=== PATIENT | male | born 1935 | race Caucasian/White ===

== ENCOUNTER 2017-06-12 09:14 | Emergency (ER) | payer MEDICARE ==
[~2017-06-12] VITALS: Ht 180.3 cm; Wt 98.0 kg
[2017-06-12] MEDS ORDERED: SODIUM CHLORIDE 0.9% 1,000 ML IV ONE (09:24)
[2017-06-12] MEDS ORDERED: PLEASE ENTER ALLERGIES MC SCH ×2 (09:30)
[2017-06-12] MEDS ORDERED: SODIUM CHLORIDE 0.9% 1,000ML IVBOLUS ONE (09:30)
[2017-06-12] MEDS ORDERED: PLEASE ENTER HEIGHT AND WEIGHT MC SCH (09:30)
[2017-06-12 09:46] LABS: HEMATOCRIT 46.2 % (39.2-51.8); HEMOGLOBIN 15.9 g/dL (13.7-18.0)
[2017-06-12] MEDS ORDERED: ONDANSETRON 2MG/ML, 2ML IVPush ONE (10:00)
[2017-06-12] MEDS ORDERED: MORPHINE SULFATE 4 MG/ML, 1ML ONE ×2 (10:23→13:56)
[2017-06-12] MEDS ORDERED: ONDANSETRON 2MG/ML, 2ML ONE (10:23)
[2017-06-12] MEDS: MORPHINE SULFATE 4 MG/ML, 1ML IVPush PRN ×2 (10:43→14:05)
[2017-06-12 11:19] LABS: BLOOD UREA NITROGEN 17 mg/dL (7-18)
[2017-06-12 14:48] VITALS: BP 114/97
== END 2017-06-12 14:52 | disposition home or self-care (01) ==
LOC: ED 09:32
DX: N30.01 Acute cystitis with hematuria (principal); D72.829 Elevated white blood cell count, unspecified; E11.9 Type 2 diabetes mellitus without complications
CPT/HCPCS: 36415; 51702; 76770; 80048; 81001; 82040; 85025; 87077; 87086; 87186; 96361; 96374; 96375; 96376; 99285; J2405; J7030

== ENCOUNTER 2017-06-16 10:01 | Inpatient (IN) | payer MEDICARE ==
[~2017-06-16] VITALS: Ht 180.3 cm; Wt 100.7 kg
[2017-06-16] MEDS ORDERED: LISI40TA PO (10:50)
[2017-06-16] MEDS ORDERED: FURO20TA3 PO (10:50)
[2017-06-16] MEDS ORDERED: CLOP75TA PO (10:50)
[2017-06-16] MEDS ORDERED: POTA10CA PO (10:50)
[2017-06-16] MEDS ORDERED: SAXA5TAB PO (10:50)
[2017-06-16] MEDS ORDERED: APIX5TAB PO (10:50)
[2017-06-16] MEDS ORDERED: ATEN100T PO (10:50)
[2017-06-16] MEDS ORDERED: TRAM50TA2 PO (10:50)
[2017-06-16] MEDS ORDERED: GLIP5TAB10 PO (10:50)
[2017-06-16] MEDS ORDERED: METF500T4 PO (10:50)
[2017-06-16] MEDS ORDERED: LABETALOL 5MG/ML, 20ML ONE (10:53)
[2017-06-16 10:55] LABS: PATH.CAST-FLAG NOT PRESENT; SPERM-FLAG NOT PRESENT; SRC-FLAG NOT PRESENT; XTAL-FLAG NOT PRESENT; YLC-FLAG NOT PRESENT
[2017-06-16] MEDS ORDERED: SODIUM CHLORIDE 0.9% 1,000ML IVBOLUS ONE (11:00)
[2017-06-16] MEDS ORDERED: LABETALOL 5MG/ML, 20ML IVPush ONE (11:00)
[2017-06-16] MEDS ORDERED: SODIUM CHLORIDE FLUSH 10ML SYR IVF ONE (11:00)
[2017-06-16 11:11] LABS: HEMATOCRIT 45.8 % (39.2-51.8); HEMOGLOBIN 15.6 g/dL (13.7-18.0); WHITE BLOOD COUNT 9.8 x10^3/uL (3.4-10)
[2017-06-16 11:13] LABS: BLOOD UREA NITROGEN 15 mg/dL (7-18)
[2017-06-16] MEDS ORDERED: INSULIN REGULAR 100 UNITS/ML, 3ML VIAL IVPush ONE (11:30)
[2017-06-16] MEDS ORDERED: ERTAPENEM 1 GM in SODIUM CHLORIDE 0.9% 50 ML IV ONE (11:30)
[2017-06-16] MEDS ORDERED: INSULIN REGULAR 100 UNITS/ML, 3ML VIAL ONE ×2 (11:32→11:33)
[2017-06-16] MEDS: ERTAPENEM 1 GM in SODIUM CHLORIDE 0.9% 50 ML IV SCH (12:30)
[2017-06-16] MEDS ORDERED: ATENOLOL 100 MG TABLET PO SCH (13:00)
[2017-06-16] MEDS ORDERED: ACETAMINOPHEN 325 MG TABLET PO PRN (13:00)
[2017-06-16] MEDS ORDERED: TEMPLATE NON-FORMULARY MED. (Potassium Chloride** 10 MEQ) PO SCH (13:00)
[2017-06-16] MEDS ORDERED: ONDANSETRON 2MG/ML, 2ML IVPush PRN (13:00)
[2017-06-16] MEDS ORDERED: ONDANSETRON ODT 4 MG PO PRN (13:00)
[2017-06-16] MEDS ORDERED: LISINOPRIL 20 MG TABLET PO SCH (13:00)
[2017-06-16] MEDS ORDERED: FUROSEMIDE 20 MG TABLET PO SCH (13:00)
[2017-06-16 14:33] VITALS: BP 154/83
[2017-06-16] MEDS: SODIUM CHLORIDE 0.9% 1,000 ML IV SCH (15:27)
[2017-06-16 18:32] VITALS: BP 164/80
[2017-06-16] MEDS: INSULIN ASPART 100 UNITS/ML, PEN SQ-INSULIN SCH ×2 (19:10→21:20)
[2017-06-16] MEDS: APIXABAN 5 MG TABLET PO SCH (20:16)
[2017-06-17 01:41] VITALS: BP 189/85
[2017-06-17] MEDS: HYDROmorphone 1 MG/ML, 1ML IV PRN ×4 (02:07→20:28)
[2017-06-17] MEDS: SODIUM CHLORIDE 0.9% 1,000 ML IV SCH ×2 (02:07→15:21)
[2017-06-17] MEDS: hydrALAzine 20 MG/ML, 1ML IV PRN (03:32)
[2017-06-17 04:00] VITALS: BP 174/76
[2017-06-17 05:16] LABS: HEMATOCRIT 41.3 % (39.2-51.8); HEMOGLOBIN 14.1 g/dL (13.7-18.0); WHITE BLOOD COUNT 6.2 x10^3/uL (3.4-10)
[2017-06-17 05:25] LABS: BLOOD UREA NITROGEN 11 mg/dL (7-18)
[2017-06-17 05:29] LABS: ASPARTATE AMINO TRANSFERASE 16 U/L (15-37)
[2017-06-17 05:38] VITALS: BP 154/75
[2017-06-17 08:00] VITALS: BP 158/91
[2017-06-17] MEDS ORDERED: POTASSIUM CHLORIDE 20 MEQ TAB.ER.PRT PO ONE (08:30)
[2017-06-17] MEDS: INSULIN ASPART 100 UNITS/ML, PEN SQ-INSULIN SCH ×4 (08:41→20:47)
[2017-06-17] MEDS: APIXABAN 5 MG TABLET PO SCH ×2 (08:42→20:29)
[2017-06-17] MEDS: LISINOPRIL 20 MG TABLET PO SCH (08:42)
[2017-06-17] MEDS: ATENOLOL 100 MG TABLET PO SCH (08:42)
[2017-06-17] MEDS ORDERED: CLOPIDOGREL 75 MG TABLET PO SCH (09:00)
[2017-06-17] MEDS: ERTAPENEM 1 GM in SODIUM CHLORIDE 0.9% 50 ML IV SCH (12:13)
[2017-06-17 14:00] VITALS: BP 151/92
[2017-06-17 19:16] VITALS: BP_SYST 174; BP_SYST 181; BP_DIAS 101; BP_DIAS 102
[2017-06-17] MEDS: metFORMIN 500 MG TABLET PO SCH (20:28)
[2017-06-18] MEDS: HYDROmorphone 1 MG/ML, 1ML IV PRN ×6 (00:29→20:12)
[2017-06-18 03:36] VITALS: BP 177/99
[2017-06-18] MEDS: hydrALAzine 20 MG/ML, 1ML IV PRN (03:47)
[2017-06-18] MEDS: SODIUM CHLORIDE 0.9% 1,000 ML IV SCH ×2 (03:48→17:22)
[2017-06-18 03:59] VITALS: BP 162/83
[2017-06-18] MEDS: INSULIN ASPART 100 UNITS/ML, PEN SQ-INSULIN SCH ×4 (07:00→20:12)
[2017-06-18 07:21] VITALS: BP 132/74
[2017-06-18] MEDS ORDERED: GLUCAGON 1 MG IM PRN (08:30)
[2017-06-18] MEDS ORDERED: DEXTROSE 50%, 50ML SYRINGE IVPush PRN (08:30)
[2017-06-18] MEDS ORDERED: DEXTROSE 4 GM TAB.CHEW PO PRN (08:30)
[2017-06-18] MEDS: TEMPLATE NON-FORMULARY MED. (Saxagliptin Hcl** (Onglyza**) 5 MG) PO SCH (09:00)
[2017-06-18] MEDS: LISINOPRIL 20 MG TABLET PO SCH (09:00)
[2017-06-18] MEDS: SODIUM CHLORIDE FLUSH 10ML SYR IVF SCH ×2 (10:18→20:11)
[2017-06-18] MEDS: APIXABAN 5 MG TABLET PO SCH ×2 (10:19→20:10)
[2017-06-18] MEDS: metFORMIN 500 MG TABLET PO SCH ×2 (10:20→20:10)
[2017-06-18] MEDS: ATENOLOL 100 MG TABLET PO SCH (10:21)
[2017-06-18] MEDS: ERTAPENEM 1 GM in SODIUM CHLORIDE 0.9% 50 ML IV SCH (11:34)
[2017-06-18] MEDS: OXYcodone IR 5MG TABLET PO PRN ×3 (11:58→23:11)
[2017-06-18 14:19] VITALS: BP 137/71
[2017-06-18 19:07] VITALS: BP 164/96
[2017-06-19] MEDS: HYDROmorphone 1 MG/ML, 1ML IV PRN ×6 (00:26→20:54)
[2017-06-19 01:36] VITALS: BP 135/99
[2017-06-19] MEDS: OXYcodone IR 5MG TABLET PO PRN ×2 (03:52→18:03)
[2017-06-19 05:39] LABS: HEMATOCRIT 39.9 % (39.2-51.8); HEMOGLOBIN 13.4 g/dL (13.7-18.0); WHITE BLOOD COUNT 7.2 x10^3/uL (3.4-10)
[2017-06-19 05:56] LABS: BLOOD UREA NITROGEN 13 mg/dL (7-18)
[2017-06-19] MEDS: SODIUM CHLORIDE 0.9% 1,000 ML IV SCH ×2 (07:21→20:52)
[2017-06-19 07:41] VITALS: BP 192/96
[2017-06-19] MEDS: APIXABAN 5 MG TABLET PO SCH ×2 (09:00→20:53)
[2017-06-19] MEDS: ATENOLOL 100 MG TABLET PO SCH (09:00)
[2017-06-19] MEDS: TEMPLATE NON-FORMULARY MED. (Saxagliptin Hcl** (Onglyza**) 5 MG) PO SCH (09:00)
[2017-06-19] MEDS: LISINOPRIL 20 MG TABLET PO SCH (09:00)
[2017-06-19] MEDS: metFORMIN 500 MG TABLET PO SCH ×2 (09:21→20:52)
[2017-06-19] MEDS: INSULIN ASPART 100 UNITS/ML, PEN SQ-INSULIN SCH (09:21)
[2017-06-19] MEDS: SODIUM CHLORIDE FLUSH 10ML SYR IVF SCH ×2 (09:21→20:37)
[2017-06-19] MEDS ORDERED: LABETALOL 5MG/ML, 20ML IVPush PRN (10:30)
[2017-06-19] MEDS: ERTAPENEM 1 GM in SODIUM CHLORIDE 0.9% 50 ML IV SCH (12:29)
[2017-06-19] MEDS: INSULIN REGULAR 100 UNITS/ML, 3ML VIAL SQ-INSULIN SCH ×3 (12:30→21:08)
[2017-06-19] MEDS ORDERED: INSULIN DETEMIR 100 UNITS/ML, PEN SQ-INSULIN SCH (17:00)
[2017-06-19 18:48] VITALS: BP 164/98
[2017-06-20] MEDS: OXYcodone IR 5MG TABLET PO PRN ×2 (00:16→04:42)
[2017-06-20] MEDS: HYDROmorphone 1 MG/ML, 1ML IV PRN ×4 (01:07→12:40)
[2017-06-20 01:09] VITALS: BP 174/99
[2017-06-20 04:42] VITALS: BP 173/92
[2017-06-20] MEDS: hydrALAzine 20 MG/ML, 1ML IV PRN (05:11)
[2017-06-20 07:06] VITALS: BP 195/94
[2017-06-20] MEDS: APIXABAN 5 MG TABLET PO SCH (07:43)
[2017-06-20] MEDS: LISINOPRIL 20 MG TABLET PO SCH (07:44)
[2017-06-20] MEDS: metFORMIN 500 MG TABLET PO SCH (07:44)
[2017-06-20] MEDS: ATENOLOL 100 MG TABLET PO SCH (07:44)
[2017-06-20] MEDS: SODIUM CHLORIDE FLUSH 10ML SYR IVF SCH (07:45)
[2017-06-20] MEDS: TEMPLATE NON-FORMULARY MED. (Saxagliptin Hcl** (Onglyza**) 5 MG) PO SCH (07:49)
[2017-06-20] MEDS: SODIUM CHLORIDE 0.9% 1,000 ML IV SCH (08:40)
[2017-06-20] MEDS: INSULIN REGULAR 100 UNITS/ML, 3ML VIAL SQ-INSULIN SCH ×2 (08:41→11:00)
[2017-06-20] MEDS ORDERED: FOSFOMYCIN 3 GM PACKET PO ONE (09:30)
[2017-06-20 09:50] VITALS: BP 159/91
[2017-06-20] MEDS: ERTAPENEM 1 GM in SODIUM CHLORIDE 0.9% 50 ML IV SCH (10:31)
== END 2017-06-20 14:00 | disposition home or self-care (01) | DRG 292 ==
LOC: ED 10:49 → EDIP 11:46 → 4WST 14:27
PROVIDERS: ADMIT Hospitalist; ATTEND Hospitalist
DX: I11.0 Hypertensive heart disease with heart failure (principal); N39.0 Urinary tract infection, site not specified; D68.69 Other thrombophilia; E11.65 Type 2 diabetes mellitus with hyperglycemia; E11.51 Type 2 diabetes mellitus with diabetic peripheral angiopathy without gangrene; E86.0 Dehydration; E44.1 Mild protein-calorie malnutrition; I48.2 Chronic atrial fibrillation; E87.1 Hypo-osmolality and hyponatremia; M48.50XA Collapsed vertebra, not elsewhere classified, site unspecified, initial encounter for fracture; I50.32 Chronic diastolic (congestive) heart failure; B96.1 Klebsiella pneumoniae [K. pneumoniae] as the cause of diseases classified elsewhere; E78.5 Hyperlipidemia, unspecified; G89.29 Other chronic pain; F41.9 Anxiety disorder, unspecified; E87.6 Hypokalemia; G47.00 Insomnia, unspecified; M54.9 Dorsalgia, unspecified; Z16.12 Extended spectrum beta lactamase (ESBL) resistance; Z79.01 Long term (current) use of anticoagulants; Z79.84 Long term (current) use of oral hypoglycemic drugs; Z83.3 Family history of diabetes mellitus; Z82.49 Family history of ischemic heart disease and other diseases of the circulatory system; Z90.49 Acquired absence of other specified parts of digestive tract; Z68.31 Body mass index [BMI] 31.0-31.9, adult
CPT/HCPCS: 36415; 80048; 80053; 81001; 82040; 82962; 84443; 85025; 85610; 87040; 87077; 87086; 87186; 93005; 96361; 96374; 96375; J1170; J1335; J1815; J0360; J7030

== ENCOUNTER → 2017-09-29 | Outpatient (CLI) | payer MEDICARE ==
[~2017-09-29] MED LIST: APIX5TAB PO; ATEN100T PO; CLOP75TA PO; FURO20TA3 PO; GLIP5TAB10 PO; LISI40TA PO; METF500T4 PO; OXYC5CAP2 PO; POTA10CA PO; SAXA5TAB PO; SULF-169 PO; TRAM50TA2 PO
[2017-09-29 15:06] LABS: BASOPHILS # (AUTO) 0.04 x10^3/uL (0-0.1); BASOPHILS % (AUTO) 1 % (0-1); EOSINOPHILS % (AUTO) 5 % (1-7); LYMPHOCYTES # (AUTO) 1.83 x10^3/uL (1-3.4); LYMPHOCYTES % (AUTO) 23 % (22-44); MD NO; MEAN CORPUSCULAR HEMOGLOBIN 31.1 pg (27.5-34.5); MEAN CORPUSCULAR HGB CONC 33.8 g/dL (33.2-36.2); MEAN CORPUSCULAR VOLUME 91.9 fL (81-97); MEAN PLATELET VOLUME 9.2 fL (7.4-10.4); MONOCYTES # (AUTO) 0.64 x10^3/uL (0.2-0.8); MONOCYTES % (AUTO) 8 % (2-9); NEUTROPHILS % (AUTO) 63 % (42-75); PLATELET COUNT 205 x10^3/uL (130-400); RED BLOOD COUNT 5.16 x10^6/uL (4.38-5.82); RED CELL DISTRIBUTION WIDTH 14.7 % (9.4-14.8)
[2017-09-29 15:13] LABS: MICROSCOPIC NOT IND
[2017-09-29 15:24] LABS: ALBUMIN 3.7 g/dL (3.4-5.0); ANION GAP 10 mmol/L (5-15); CALCIUM 9.7 mg/dL (8.5-10.1); CHLORIDE 96 mmol/L (98-107)
[2017-09-29 15:28] LABS: ALANINE AMINOTRANSFERASE 36 U/L (12-78); ALKALINE PHOSPHATASE 77 U/L (45-117); BILIRUBIN,TOTAL 1.3 mg/dL (0.2-1.0); CREATININE 1.27 mg/dL (0.7-1.3); TOTAL PROTEIN 7.9 g/dL (6.4-8.2)
[2017-09-29 15:59] LABS: CULTURE INDICATED? NO
== END | disposition home or self-care (01) ==
LOC: STAR 13:44
PROVIDERS: ATTEND Orthopaedic Surgery Orthopaedic Surgery of the Spine
DX: Z01.818 Encounter for other preprocedural examination (principal); R94.31 Abnormal electrocardiogram [ECG] [EKG]; M48.062 Spinal stenosis, lumbar region with neurogenic claudication; M51.36 Other intervertebral disc degeneration, lumbar region
CPT/HCPCS: 36415; 71046; 80053; 81003; 85025; 93005

== ENCOUNTER 2017-10-03 05:27 | Day surgery (SDC) | payer MEDICARE ==
[~2017-10-03] VITALS: Ht 180.3 cm; Wt 93.2 kg
[2017-10-03] MEDS ORDERED: LACTATED RINGERS 1,000 ML IV SCH (06:12)
[2017-10-03] MEDS ORDERED: BUPIVACAINE/PF 0.5% ONE (06:58)
[2017-10-03] MEDS ORDERED: EPINEPHRINE 1 MG/ML, 1ML ONE (06:59)
[2017-10-03] MEDS ORDERED: THROMBIN 5,000 UNIT VIAL TP ONE (06:59)
[2017-10-03] MEDS ORDERED: BACITRACIN 50,000 UNIT ONE (06:59)
[2017-10-03] MEDS ORDERED: KETAMINE 10 MG/ML, 20ML ONE (07:10)
[2017-10-03] MEDS ORDERED: FENTANYL PF 250 MCG/5ML ONE (07:10)
[2017-10-03] MEDS ORDERED: CLINDAMYCIN 150 MG/ML, 6ML ONE (07:31)
[2017-10-03] MEDS ORDERED: ROCURONIUM 10MG/ML,5ML ONE (07:32)
[2017-10-03] MEDS ORDERED: SUCCINYLCHOLINE 20 MG/ML, 10ML ONE (07:32)
[2017-10-03] MEDS ORDERED: PROPOFOL 10 MG/ML, 20ML ONE (07:32)
[2017-10-03] MEDS ORDERED: BUPIVACAINE/PF-EPI 0.5% 1:200K IM ONE (08:00)
[2017-10-03] MEDS ORDERED: TRANEXAMIC ACID 100 MG/ML, 10ML ONE (08:07)
[2017-10-03] MEDS ORDERED: LABETALOL 5MG/ML, 20ML IV PRN (08:30)
[2017-10-03] MEDS ORDERED: ALBUTEROL SULFATE 2.5 MG/3 ML NPPB PRN (08:30)
[2017-10-03] MEDS ORDERED: ACETAMINOPHEN 325 MG TABLET PO PRN (08:30)
[2017-10-03] MEDS ORDERED: PROMETHAZINE 25 MG/ML, 1ML IV PRN (08:30)
[2017-10-03] MEDS ORDERED: DIAZEPAM 5 MG/ML, 2ML IVPush PRN (08:30)
[2017-10-03] MEDS ORDERED: morphine SULFATE 10 MG/ML, 1ML IV PRN (08:30)
[2017-10-03] MEDS ORDERED: VANCOMYCIN 500 MG ONE (08:38)
[2017-10-03] MEDS ORDERED: BUPIVACAINE LIPOSOME/PF INFIL ONE ×2 (08:52→09:00)
[2017-10-03] MEDS ORDERED: ACETAMINOPHEN 650 MG/20.3 ML UDC ONE (09:38)
[2017-10-03] MEDS ORDERED: FENTANYL PF 100 MCG/2ML ONE (09:38)
[2017-10-03] MEDS ORDERED: OXYcodone 5 MG/5 ML ORAL.SOL UDC ONE ×2 (09:39→10:29)
[2017-10-03] MEDS: OXYcodone 5 MG/5 ML ORAL.SOL UDC PO PRN ×2 (09:46→10:20)
[2017-10-03] MEDS: FENTANYL PF 100 MCG/2ML IV PRN ×2 (09:47→10:12)
[2017-10-03] MEDS ORDERED: LABETALOL 5MG/ML, 20ML ONE (09:50)
[2017-10-03] MEDS ORDERED: HYDROmorphone 2 MG/ML, 1ML IM PRN (12:00)
[2017-10-03] MEDS ORDERED: OXYcodone/APAP 5/325MG TABLET PO PRN (12:00)
[2017-10-03] MEDS ORDERED: HYDROmorphone 2 MG/ML, 1ML IV PRN (12:30)
[2017-10-03] MEDS ORDERED: HYDROmorphone 1 MG/ML, 1ML IV PRN (12:30)
[2017-10-03 13:58] VITALS: BP 161/95
== END 2017-10-03 14:30 | disposition home or self-care (01) ==
LOC: OR 05:27 → 4NOR 05:35 → OR 14:30
PROVIDERS: ATTEND Orthopaedic Surgery Orthopaedic Surgery of the Spine
DX: M51.36 Other intervertebral disc degeneration, lumbar region (principal); M48.061 Spinal stenosis, lumbar region without neurogenic claudication; E11.9 Type 2 diabetes mellitus without complications; I10 Essential (primary) hypertension; I48.91 Unspecified atrial fibrillation; Z79.84 Long term (current) use of oral hypoglycemic drugs; Z79.899 Other long term (current) drug therapy; Z88.8 Allergy status to other drugs, medicaments and biological substances
CPT/HCPCS: 63030; 72100; 82962; C9290; J0171; J1170; J3010; J3370; J3490; J2704; J0330

== ENCOUNTER → 2020-07-27 | Outpatient (CLI) | payer MEDICARE ==
[~2020-07-27] MED LIST changes: +METF500T17 PO; -METF500T4 PO
== END | disposition home or self-care (01) ==
LOC: STAR 14:08
PROVIDERS: ATTEND Anesthesiology
DX: Z01.812 Encounter for preprocedural laboratory examination (principal); Z20.828 Contact with and (suspected) exposure to other viral communicable diseases
CPT/HCPCS: 36415; 87635

== ENCOUNTER 2020-07-31 10:59 | Day surgery (SDC) | payer MEDICARE ==
[~2020-07-31] VITALS: Ht 180.3 cm; Wt 91.7 kg
[2020-07-31 11:41] VITALS: BP 161/81
[2020-07-31] MEDS ORDERED: [UNRECOGNIZED DRUG - OTHER] PO (11:56)
[2020-07-31] MEDS ORDERED: FURO-93 PO (11:56)
[2020-07-31] MEDS ORDERED: INSULIN SQ (11:56)
[2020-07-31] MEDS ORDERED: LACTATED RINGERS 1,000 ML IV SCH (12:00)
[2020-07-31] MEDS ORDERED: CHLORHEXIDINE 15 ML UDC MM ONE (12:00)
[2020-07-31 12:20] LABS: ANION GAP 4 mmol/L (5-15); CALCIUM 8.9 mg/dL (8.5-10.1); CHLORIDE 104 mmol/L (98-107)
[2020-07-31 12:24] LABS: ALANINE AMINOTRANSFERASE 16 U/L (12-78); ALKALINE PHOSPHATASE 86 U/L (45-117); BILIRUBIN,TOTAL 3.2 mg/dL (0.2-1.0); CREATININE 0.98 mg/dL (0.7-1.3)
[2020-07-31] MEDS ORDERED: DIPHENHYDRAMINE 50 MG/ML, 1ML IVPush PRN (13:00)
[2020-07-31] MEDS ORDERED: ONDANSETRON 2MG/ML, 2ML ONE (13:00)
[2020-07-31] MEDS ORDERED: SUCCINYLCHOLINE 20 MG/ML, 10ML ONE (13:00)
[2020-07-31] MEDS ORDERED: hydrALAzine 20 MG/ML, 1ML IV PRN (13:00)
[2020-07-31] MEDS ORDERED: ROCURONIUM 10 MG/ML,10ML ONE (13:00)
[2020-07-31] MEDS ORDERED: PROMETHAZINE 25 MG/ML, 1ML IVPush PRN (13:00)
[2020-07-31] MEDS ORDERED: HALOPERIDOL 5 MG/ML IV PRN (13:00)
[2020-07-31] MEDS ORDERED: PROPOFOL 10 MG/ML, 20ML ONE (13:00)
[2020-07-31] MEDS ORDERED: LABETALOL 5MG/ML, 20ML IV PRN (13:00)
[2020-07-31] MEDS ORDERED: FENTANYL PF 100 MCG/2ML IV PRN (13:00)
[2020-07-31] MEDS ORDERED: MEPERIDINE/PF 25MG/0.5ML IVPush PRN (13:00)
[2020-07-31] MEDS ORDERED: GADOTERATE 10 MMOL/20 ML SYR ONE (15:18)
[2020-07-31] MEDS ORDERED: FENTANYL PF 100 MCG/2ML ONE (15:51)
== END 2020-07-31 17:25 | disposition home or self-care (01) ==
LOC: OUT 10:59 → EDSTATUS 13:00 → OUT 17:25
PROVIDERS: ATTEND Physician Assistant
DX: M54.5 Low back pain (principal); M54.2 Cervicalgia; M51.14 Intervertebral disc disorders with radiculopathy, thoracic region; M48.061 Spinal stenosis, lumbar region without neurogenic claudication; M48.02 Spinal stenosis, cervical region; I48.91 Unspecified atrial fibrillation; I10 Essential (primary) hypertension; G47.33 Obstructive sleep apnea (adult) (pediatric); E11.9 Type 2 diabetes mellitus without complications; Z79.01 Long term (current) use of anticoagulants; Z79.84 Long term (current) use of oral hypoglycemic drugs; Z79.891 Long term (current) use of opiate analgesic; Z79.899 Other long term (current) drug therapy; Z88.8 Allergy status to other drugs, medicaments and biological substances; Z98.1 Arthrodesis status
CPT/HCPCS: 36415; 72156; 72157; 72158; 80053; 82962; 93005; A9575; J0330; J2405; J2704; J7120

== ENCOUNTER 2020-10-15 19:12 | Emergency (ER) | payer MEDICARE ==
[~2020-10-15] VITALS: Ht 180.3 cm; Wt 93.9 kg
[~2020-10-15 19:12] MED LIST changes: +FURO-93 PO; +INSULIN SQ; +[UNRECOGNIZED DRUG - OTHER] PO
--- NOTE | 2020-10-15 19:48 | NUR ---
ASSUMED CARE OF PT AT THIS TIME FROM TRIAGE. AMBULATORY TO ROOM WITH STEADY GAIT. 85 Y/O M PRESENTS WITH "INJURED MY BACK A FEW YEARS BACK, HAVE HAD A CAGE PUT IN BY DR. VAZQUEZ, I'M SUPPOSED TO HAVE SURGERY IN OCTOBER, BUT LAST NIGHT THE PAIN FELT DIFFERENT AND SEEMS WORSE. I TAKE OXYCODONE 5MG FIVE TIMES A DAY, LAST TIME 6PM TONIGHT. MY EARS ALSO FEEL PLUGGED, I'M WORRIED ABOUT COVID BUT I HAVEN'T BEEN AROUND ANYONE, MY AND I STAY HOME." RATES PAIN 6-03/30. DENIES CP, SOB, MORENO, DIZZINESS, ABD PAIN, N/V/D, FEVER, CHILLS, LOSS OF TASTE/SMELL, BODY ACHES, MORENO, RECENT TRAVEL OR EXPOSURE TO COVID + PERSONS. CONT PULSE OX, BP, CARDIAC MONITORS APPLIED. PT WITH HX OF A-FIB, TAKING ELIQUIS. A-FIB ON MONITOR, RATE CONTROLLED 80-86. BP ELEVATED, HX HTN. COMPLIANT WITH MEDS PER PT. CALL LIGHT IN REACH. FALL PRECUATIONS IN PLACE. SIDE RAILS UPX2. A&OX4. ASSESSMENT COMPLETED. AWAITING EVAL BY ERP
--- NOTE | 2020-10-15 20:06 | NUR ---
BP IMPROVING, CONTINUE AWAITING EVALUATION BY ERP. REMAINS AFIB ON MONITOR, RATE CONTROLLED 80-89. VSS. DENIES NEED TO USE RESTROOM. CALL LIGHT IN REACH. FALL PRECAUTIONS IN PLACE
--- NOTE | 2020-10-15 20:09 | NUR ---
DR. VAZQUEZ AT BEDSIDE FOR EVAL
--- NOTE | 2020-10-15 20:15 | NUR ---
TORADOL ORDERED 690MG (23 ML). DISCUSSED WITH DR. VAZQUEZ, ORDERED IN ERROR, TO CANCEL AND REORDER CORRECT DOSE 60MG TORADOL IM
[2020-10-15] MEDS ORDERED: HYDROmorphone 2 MG/ML, 1ML IM PRN (20:30)
[2020-10-15] MEDS ORDERED: KETOROLAC 60 MG/2 ML IM ONE (20:30)
[2020-10-15] MEDS ORDERED: KETOROLAC 30 MG/1 ML IM ONE (20:30)
--- NOTE | 2020-10-15 20:47 | NUR ---
GERTRUDE RN- PT MEDICATED PRE MAR
--- NOTE | 2020-10-15 21:13 | NUR ---
PT REPORTS BACK PAIN IMPROVED TO 4/10 "FEELING SO MUCH BETTER, I'M READY TO GO HOME. MY IS HERE TO DRIVE ME HOME." PT UP FOR RECHECK, AWAITING CHART AND DISCHARGE PAPERS FROM ERP. VSS. CALL LIGHT IN REACH. FALL PRECAUTIONS IN PLACE.
[2020-10-15 21:15] VITALS: BP 119/65
== END 2020-10-15 21:34 | disposition home or self-care (01) ==
LOC: ED 21:26
DX: M54.5 Low back pain (principal); G89.29 Other chronic pain; E11.9 Type 2 diabetes mellitus without complications; I48.91 Unspecified atrial fibrillation
CPT/HCPCS: 96372; 99285; J1170; J1885

== ENCOUNTER → 2021-02-06 | Outpatient (CLI) | payer MEDICARE ==
[~2021-02-06] MED LIST changes: +INSU100I13 SC; -LISI40TA PO; +LISI40TA9 PO
[2021-02-06 14:15] LABS: MEAN CORPUSCULAR HEMOGLOBIN 31.9 pg (27.5-34.5); MEAN CORPUSCULAR HGB CONC 33.9 g/dL (33.2-36.2); PLATELET COUNT 175 x10^3/uL (130-400); RED BLOOD COUNT 5.08 x10^6/uL (4.38-5.82); RED CELL DISTRIBUTION WIDTH 14.5 % (9.4-14.8)
[2021-02-06 14:22] LABS: ALANINE AMINOTRANSFERASE 23 U/L (12-78); ALBUMIN 3.9 g/dL (3.4-5.0); ANION GAP 7 mmol/L (5-15); CALCIUM 9.1 mg/dL (8.5-10.1); CHLORIDE 108 mmol/L (98-107); CREATININE 0.92 mg/dL (0.7-1.3)
[2021-02-06 14:24] LABS: ALKALINE PHOSPHATASE 63 U/L (45-117); TOTAL PROTEIN 7.5 g/dL (6.4-8.2)
[2021-02-06 14:46] LABS: MICROSCOPIC AUTO
[2021-02-06 19:15] LABS: MD YES
[2021-02-06 19:18] LABS: EOS#(MANUAL) 0.49 x10^3/uL (0.0-0.4); EOS% (MANUAL) 6 % (1-7); LYMPHS% (MANUAL) 16 % (22-44); MONOS#(MANUAL) 0.65 x10^3/uL (0.3-2.7); MONOS% (MANUAL) 8 % (2-9); SEG#(MANUAL) 5.67 x10^3/uL (1.8-6.8); SEGS% (MANUAL) 70 % (42-75)
[2021-02-06 19:19] LABS: <PLATELET ESTIMATE> ADEQUATE; <PLT MORPHOLOGY> NORMAL PLT MORPH; <RBC MORPHOLOGY> NORMAL
== END | disposition home or self-care (01) ==
LOC: STAR 12:28
PROVIDERS: ATTEND Orthopaedic Surgery
DX: Z01.818 Encounter for other preprocedural examination (principal); M48.062 Spinal stenosis, lumbar region with neurogenic claudication; I25.2 Old myocardial infarction; I48.91 Unspecified atrial fibrillation; R94.31 Abnormal electrocardiogram [ECG] [EKG]; Z20.822 Contact with and (suspected) exposure to COVID-19
CPT/HCPCS: 36415; 71046; 80053; 81001; 85025; 93005; U0003; U0005

== ENCOUNTER 2021-02-11 05:37 | Inpatient (IN) | payer MEDICARE ==
[~2021-02-11] VITALS: Ht 180.3 cm; Wt 92.3 kg
[2021-02-11] MEDS ORDERED: HEPARIN 1,000 UNITS/ML, 30ML ONE (05:53)
[2021-02-11] MEDS ORDERED: BUPIVACAINE/PF 0.5% ONE (06:10)
[2021-02-11] MEDS ORDERED: VANCOMYCIN 1,000 MG ONE (06:11)
[2021-02-11] MEDS ORDERED: EPINEPHRINE 1 MG/ML, 1ML ONE (06:11)
[2021-02-11] MEDS ORDERED: BACITRACIN OINT 500U/GM, 15 GM ONE (06:11)
[2021-02-11] MEDS ORDERED: BACITRACIN 50,000 UNIT ONE (06:11)
[2021-02-11] MEDS ORDERED: CHLORHEXIDINE 15 ML UDC ONE (06:22)
[2021-02-11] MEDS ORDERED: CHLORHEXIDINE 15 ML UDC PO ONE (06:30)
[2021-02-11] MEDS ORDERED: LACTATED RINGERS 1,000 ML IV SCH (06:30)
[2021-02-11] MEDS ORDERED: FENTANYL PF 250 MCG/5ML ONE (06:35)
[2021-02-11] MEDS ORDERED: PROPOFOL 200 ML ONE (06:36)
[2021-02-11] MEDS ORDERED: VANCOMYCIN 1,400 MG in SODIUM CHLORIDE 0.9% 250 ML IV ONE (07:00)
[2021-02-11] MEDS ORDERED: VANCOMYCIN PER PHARMACY MC PRN (07:00)
[2021-02-11] MEDS ORDERED: TRANEXAMIC ACID 100 MG/ML, 10ML ONE (07:34)
[2021-02-11] MEDS ORDERED: BUPIVACAINE/PF-EPI 0.5% 1:200K INFIL ONE (08:05)
[2021-02-11] MEDS ORDERED: BACITRACIN 50,000 UNIT IRRIG ONE (08:06)
[2021-02-11] MEDS ORDERED: BACITRACIN OINT 500U/GM, 15 GM TP ONE (08:07)
[2021-02-11] MEDS ORDERED: SUGAMMADEX 200 MG/2 ML IVPush ONE (08:41)
[2021-02-11] MEDS ORDERED: ROCURONIUM 10MG/ML,5ML ONE (09:23)
[2021-02-11] MEDS ORDERED: ONDANSETRON 2MG/ML, 2ML ONE (09:23)
[2021-02-11] MEDS ORDERED: NEOSTIGMINE 1 MG/ML, 10ML ONE (09:23)
[2021-02-11] MEDS ORDERED: CEFAZOLIN 1,000 MG ONE (09:23)
[2021-02-11] MEDS ORDERED: SUCCINYLCHOLINE 20 MG/ML, 10ML ONE (09:23)
[2021-02-11] MEDS ORDERED: DEXAMETHASONE 4 MG/ML, 1ML ONE (09:23)
[2021-02-11] MEDS ORDERED: PROPOFOL 10 MG/ML, 20ML ONE (09:23)
[2021-02-11] MEDS ORDERED: GLYCOPYRROLATE 0.2MG/1ML, 5ML ONE (09:23)
[2021-02-11] MEDS ORDERED: PROMETHAZINE 25 MG/ML, 1ML IV PRN (09:30)
[2021-02-11] MEDS ORDERED: hydrALAzine 20 MG/ML, 1ML IV PRN (09:30)
[2021-02-11] MEDS ORDERED: ACETAMINOPHEN 325 MG TABLET PO PRN (09:30)
[2021-02-11] MEDS ORDERED: LABETALOL 5MG/ML, 20ML IV PRN ×2 (09:30→12:00)
[2021-02-11] MEDS ORDERED: KETOROLAC 30 MG/1 ML IV PRN (09:30)
[2021-02-11] MEDS ORDERED: OXYcodone 5 MG/5 ML ORAL.SOL UDC PO PRN (09:30)
[2021-02-11] MEDS ORDERED: MEPERIDINE/PF 25MG/0.5ML IVPush PRN (09:30)
[2021-02-11] MEDS ORDERED: ALBUTEROL SULFATE 2.5 MG/3 ML NPPB PRN (09:30)
[2021-02-11] MEDS ORDERED: DIAZEPAM 5 MG/ML, 2ML IVPush PRN (09:30)
[2021-02-11] MEDS ORDERED: OXYcodone 5 MG/5 ML ORAL.SOL UDC ONE (10:01)
[2021-02-11] MEDS ORDERED: FENTANYL PF 100 MCG/2ML ONE (10:01)
[2021-02-11] MEDS: FENTANYL PF 100 MCG/2ML IV PRN ×2 (10:05→10:12)
[2021-02-11] MEDS ORDERED: CYCLOBENZAPRINE 10 MG TABLET ONE (10:09)
[2021-02-11] MEDS ORDERED: HYDROmorphone 1 MG/ML, 1ML INJ ONE ×2 (10:11→10:42)
[2021-02-11] MEDS: HYDROmorphone 2 MG/ML, 1ML IVPush PRN ×2 (10:17→10:25)
[2021-02-11] MEDS ORDERED: hydrALAzine 20 MG/ML, 1ML ONE (10:23)
[2021-02-11] MEDS ORDERED: CYCLOBENZAPRINE 10 MG TABLET PO ONE (10:30)
[2021-02-11] MEDS ORDERED: MAGNESIUM HYDROXIDE 8%, 30ML UDC PO PRN (12:00)
[2021-02-11] MEDS ORDERED: DIPHENHYDRAMINE 25 MG CAPSULE PO PRN (12:00)
[2021-02-11] MEDS ORDERED: HYDROmorphone 2 MG/ML, 1ML IVPush PRN (12:00)
[2021-02-11] MEDS ORDERED: BISACODYL 10 MG SUPP PR PRN (12:00)
[2021-02-11] MEDS ORDERED: HYDROmorphone 2 MG/ML, 1ML IM PRN (12:00)
[2021-02-11] MEDS ORDERED: DIPHENHYDRAMINE 50 MG/ML, 1ML IM PRN (12:00)
[2021-02-11] MEDS ORDERED: ONDANSETRON 2MG/ML, 2ML IV PRN (12:00)
[2021-02-11] MEDS ORDERED: HYDROmorphone 2MG TABLET PO PRN (12:00)
[2021-02-11] MEDS ORDERED: ACETAMINOPHEN 500 MG TABLET PO PRN (12:00)
[2021-02-11] MEDS ORDERED: ACETAMINOPHEN 650 MG SUPP PR PRN (12:00)
[2021-02-11] MEDS ORDERED: PROMETHAZINE 25 MG/ML, 1ML IM PRN (12:00)
[2021-02-11] MEDS: LABETALOL 5MG/ML, 20ML IV SCH ×2 (12:52→20:00)
[2021-02-11 12:57] VITALS: BP 155/76
[2021-02-11] MEDS: OXYcodone IR 5MG TABLET PO PRN ×3 (14:20→23:29)
[2021-02-11] MEDS: CEFAZOLIN PMX 1GM/50ML 50 ML IVPB SCH ×2 (15:51→23:32)
[2021-02-11] MEDS: D5%-0.9% NACL+KCL 20MEQ 1,000 ML IV SCH (15:51)
[2021-02-11] MEDS: INSULIN REGULAR 100 UNITS/ML, 3ML VIAL SQ-INSULIN SCH ×2 (15:54→22:51)
[2021-02-11] MEDS: metFORMIN 500 MG TABLET PO SCH (17:14)
[2021-02-11] MEDS: CYCLOBENZAPRINE 10 MG TABLET PO PRN (17:16)
[2021-02-11 20:00] VITALS: BP 133/73
[2021-02-11] MEDS: LISINOPRIL 40 MG TABLET PO SCH (22:49)
[2021-02-11] MEDS: ATENOLOL 100 MG TABLET PO SCH (22:51)
[2021-02-11] MEDS: INSULIN GLARGINE 100 UNITS/ML, PEN SQ-INSULIN SCH (23:28)
[2021-02-11 23:43] VITALS: BP 121/68
[2021-02-12] MEDS: D5%-0.9% NACL+KCL 20MEQ 1,000 ML IV SCH ×3 (02:00→22:00)
[2021-02-12 03:47] VITALS: BP 102/57
[2021-02-12] MEDS: LABETALOL 5MG/ML, 20ML IV SCH ×3 (04:00→20:00)
[2021-02-12] MEDS: OXYcodone IR 5MG TABLET PO PRN ×4 (05:07→17:20)
[2021-02-12 05:31] LABS: BASOPHILS % (AUTO) 1 % (0-1); EOSINOPHILS % (AUTO) 5 % (1-7); LYMPHOCYTES % (AUTO) 7 % (22-44); MEAN CORPUSCULAR HEMOGLOBIN 32.4 pg (27.5-34.5); MEAN CORPUSCULAR HGB CONC 34.6 g/dL (33.2-36.2); MEAN PLATELET VOLUME 9.7 fL (7.4-10.4); MONOCYTES % (AUTO) 9 % (2-9); NEUTROPHILS % (AUTO) 78 % (42-75); PLATELET COUNT 138 x10^3/uL (130-400); RED BLOOD COUNT 4.33 x10^6/uL (4.38-5.82); RED CELL DISTRIBUTION WIDTH 14.6 % (9.4-14.8)
[2021-02-12 05:33] LABS: MD NO
[2021-02-12 05:40] LABS: CHLORIDE 109 mmol/L (98-107)
[2021-02-12 05:44] LABS: ANION GAP 3 mmol/L (5-15); CALCIUM 8.4 mg/dL (8.5-10.1); CREATININE 1.03 mg/dL (0.7-1.3)
[2021-02-12 07:01] VITALS: BP 124/62
[2021-02-12] MEDS: INSULIN REGULAR 100 UNITS/ML, 3ML VIAL SQ-INSULIN SCH ×4 (07:03→21:00)
[2021-02-12] MEDS: metFORMIN 500 MG TABLET PO SCH ×2 (09:34→17:20)
[2021-02-12] MEDS: LISINOPRIL 40 MG TABLET PO SCH ×2 (09:34→21:09)
[2021-02-12] MEDS: SENNA/DOCUSATE TABLET PO SCH (09:34)
[2021-02-12] MEDS: HEPARIN 5,000 UNITS/ML, 1ML SQ SCH ×2 (09:34→17:20)
[2021-02-12] MEDS: ATENOLOL 100 MG TABLET PO SCH ×2 (09:34→21:09)
[2021-02-12 13:33] VITALS: BP 150/77
[2021-02-12] MEDS ORDERED: ACET-1600 PO (14:42)
[2021-02-12] MEDS ORDERED: CYCL10TA2 PO (14:42)
[2021-02-12] MEDS ORDERED: ONDA4TAB7 PO (14:42)
[2021-02-12] MEDS ORDERED: SENN-211 PO (14:42)
[2021-02-12] MEDS: CYCLOBENZAPRINE 10 MG TABLET PO PRN (17:20)
[2021-02-12 18:52] VITALS: BP 119/72
[2021-02-12] MEDS: INSULIN GLARGINE 100 UNITS/ML, PEN SQ-INSULIN SCH (22:49)
[2021-02-13 00:57] VITALS: BP 112/68
[2021-02-13] MEDS: LABETALOL 5MG/ML, 20ML IV SCH (01:31)
[2021-02-13] MEDS: INSULIN REGULAR 100 UNITS/ML, 3ML VIAL SQ-INSULIN SCH (01:31)
[2021-02-13] MEDS: OXYcodone IR 5MG TABLET PO PRN ×3 (01:55→10:08)
[2021-02-13] MEDS: HEPARIN 5,000 UNITS/ML, 1ML SQ SCH ×2 (01:55→10:00)
[2021-02-13 04:59] LABS: BASOPHILS % (AUTO) 1 % (0-1); EOSINOPHILS % (AUTO) 5 % (1-7); LYMPHOCYTES % (AUTO) 9 % (22-44); MD NO; MEAN CORPUSCULAR HEMOGLOBIN 32.8 pg (27.5-34.5); MEAN CORPUSCULAR HGB CONC 34.9 g/dL (33.2-36.2); MEAN PLATELET VOLUME 9.8 fL (7.4-10.4); MONOCYTES % (AUTO) 12 % (2-9); NEUTROPHILS % (AUTO) 73 % (42-75); PLATELET COUNT 124 x10^3/uL (130-400); RED BLOOD COUNT 4.13 x10^6/uL (4.38-5.82); RED CELL DISTRIBUTION WIDTH 14.3 % (9.4-14.8)
[2021-02-13 05:07] LABS: CHLORIDE 108 mmol/L (98-107)
[2021-02-13 05:12] LABS: ANION GAP 4 mmol/L (5-15); CALCIUM 8.3 mg/dL (8.5-10.1); CREATININE 0.71 mg/dL (0.7-1.3)
[2021-02-13] MEDS: CYCLOBENZAPRINE 10 MG TABLET PO PRN (05:40)
[2021-02-13] MEDS: D5%-0.9% NACL+KCL 20MEQ 1,000 ML IV SCH (08:00)
[2021-02-13 08:23] VITALS: BP 159/82
[2021-02-13] MEDS: metFORMIN 500 MG TABLET PO SCH (09:03)
[2021-02-13] MEDS: LISINOPRIL 40 MG TABLET PO SCH (09:04)
[2021-02-13] MEDS: ATENOLOL 100 MG TABLET PO SCH (09:04)
[2021-02-13] MEDS: SENNA/DOCUSATE TABLET PO SCH (09:04)
== END 2021-02-13 10:48 | disposition home or self-care (01) | DRG 460 ==
LOC: OUT 05:37 → 4NE 11:26 → OBSVTOIN 19:45 → 4NE 19:45 → OUT 20:25
PROVIDERS: ADMIT Orthopaedic Surgery; ATTEND Orthopaedic Surgery
PROC: 01NB0ZZ Release Lumbar Nerve, Open Approach (ICD-10-PCS; 2021-02-11)
PROC: 4A11X4G Monitoring of Peripheral Nervous Electrical Activity, Intraoperative, External Approach (ICD-10-PCS; 2021-02-11)
PROC: 0SG0071 Fusion of Lumbar Vertebral Joint with Autologous Tissue Substitute, Posterior Approach, Posterior Column, Open Approach (ICD-10-PCS; principal; 2021-02-11 07:00)
DX: M48.062 Spinal stenosis, lumbar region with neurogenic claudication (principal); Z88.8 Allergy status to other drugs, medicaments and biological substances; M48.061 Spinal stenosis, lumbar region without neurogenic claudication; M54.16 Radiculopathy, lumbar region
CPT/HCPCS: 36415; 72100; 80048; 82962; 85025; 86850; 86900; 95938; 95941; C1713; C1729; G0378; J0171; J0690; J1100; J1170; J1644; J1815; J2405; J2704; J2710; J3010; J3370; C1762; J0330; J0360; J3480; J7050; J7120